=== PATIENT | female | born 1980 ===

== ENCOUNTER → 2018-06-25 | Outpatient (CLI) | payer OTHER ==
--- NOTE | 2018-06-26 09:04 | MM ---
Reason for exam: screening (asymptomatic). Baseline mammogram. History: Family history of breast cancer in maternal grandmother at age 63. Took hormonal contraceptives for 2 years. Physical Findings: Nurse did not find any significant physical abnormalities on exam. MG 3D Screening Mammo W/Cad Bilateral CC and MLO view(s) were taken. The breast tissue is heterogeneously dense. This may lower the sensitivity of mammography. Finding: There is a 10 mm circumscribed oval mass in the upper quadrant, middle posterior position of the left breast. These results were verbally communicated with the patient and result sheet given to the patient on 06/25/18. ASSESSMENT: Incomplete: need additional imaging evaluation, BI-RAD 0 RECOMMENDATION: Ultrasound of the left breast. [facility] will attempt to contact patient to return for ultrasound.
--- NOTE | 2018-06-26 09:05 | USB ---
Reason for exam: additional evaluation requested from abnormal screening. History: Family history of breast cancer in maternal grandmother at age 63. Took hormonal contraceptives for 2 years. Physical Findings: Breast exam preformed at baseline screening. US Breast Workup Limited LT Technologist: Swathi Harding RT (R)(M) Left limited breast ultrasound including focal area of concern, retroareolar and axilla demonstrates a 6 x 3 x 6mm oval, solid, hypoechoic lesion at 12 o'clock. These results were verbally communicated with the patient and result sheet given to the patient on 06/25/18. ASSESSMENT: Probably benign, BI-RAD 3 RECOMMENDATION: Follow-up diagnostic mammogram and ultrasound of the left breast in 6 months.
== END | disposition home or self-care (01) ==
LOC: RADMAMWWP 14:15
PROVIDERS: ATTEND Family Medicine
DX: Z12.31 Encounter for screening mammogram for malignant neoplasm of breast (principal); R92.8 Other abnormal and inconclusive findings on diagnostic imaging of breast; Z80.3 Family history of malignant neoplasm of breast
CPT/HCPCS: 77063; 77067

== ENCOUNTER → 2019-01-22 | Outpatient (CLI) | payer OTHER ==
--- NOTE | 2019-01-22 09:07 | MM ---
Reason for exam: follow-up at short interval from prior study. Last mammogram was performed 7 months ago. History: Family history of breast cancer in maternal grandmother at age 63. Took hormonal contraceptives for 2 years. Physical Findings: Nurse did not find any significant physical abnormalities on exam. MG 3D Diag Mammo W/Cad LT CC and MLO view(s) were taken of the left breast. Prior study comparison: June 25, 2018, bilateral MG 3d screening mammo w/cad. The breast tissue is heterogeneously dense. This may lower the sensitivity of mammography. There is chronic nodularity in the left breast. These results were verbally communicated with the patient and result sheet given to the patient on 01/22/19. ASSESSMENT: Benign, BI-RAD 2 RECOMMENDATION: Follow-up diagnostic mammogram of both breasts in 6 months. Back on schedule for June 2019.
--- NOTE | 2019-01-22 09:09 | USB ---
Reason for exam: follow-up at short interval from prior study. History: Family history of breast cancer in maternal grandmother at age 63. Took hormonal contraceptives for 2 years. US Breast LT Left complete breast ultrasound includes all four quadrants, the retroareolar region and axilla. Finding demonstrates a 0.4 x 0.3 x 0.3cm lesion too small to characterize at 12 o'clock and a 0.5 x 0.2 x 0.5cm mixed lesion at 9 o'clock. These results were verbally communicated with the patient and result sheet given to the patient on 01/22/19. ASSESSMENT: Probably benign, BI-RAD 3 RECOMMENDATION: Ultrasound of the left breast in 6 months.
== END | disposition home or self-care (01) ==
LOC: RADMAMWWP 07:41
PROVIDERS: ATTEND Family Medicine
DX: R92.8 Other abnormal and inconclusive findings on diagnostic imaging of breast (principal)
CPT/HCPCS: 77061; 77065

== ENCOUNTER → 2019-08-12 | Outpatient (CLI) | payer OTHER ==
--- NOTE | 2019-08-12 08:31 | MM ---
Reason for exam: follow-up at short interval from prior study. Last mammogram was performed 7 months ago. History: Family history of breast cancer in maternal grandmother at age 63. Took hormonal contraceptives for 2 years. Physical Findings: Nurse did not find any significant physical abnormalities on exam. MG 3D Diag Mammo W/Cad ALLISON Bilateral CC and MLO view(s) were taken. Prior study comparison: January 22, 2019, left breast MG 3d diag mammo w/cad LT. June 25, 2018, bilateral MG 3d screening mammo w/cad. The breast tissue is heterogeneously dense. This may lower the sensitivity of mammography. There are benign appearing round oval circumscribed stable left upper outer quadrant middle depth and central inner left breast masses. No suspicious abnormality. These results were verbally communicated with the patient and result sheet given to the patient on 08/12/19. ASSESSMENT: Benign, BI-RAD 2 RECOMMENDATION: Routine screening mammogram of both breasts in 1 year.
--- NOTE | 2019-08-12 08:33 | USB ---
Reason for exam: follow-up at short interval from prior study. History: Family history of breast cancer in maternal grandmother at age 63. Took hormonal contraceptives for 2 years. US Breast LT Left complete breast ultrasound includes all four quadrants, the retroareolar region and axilla. Finding demonstrates a 3 x 2 x 3mm oval, cystic lesion at 12 o'clock. These results were verbally communicated with the patient and result sheet given to the patient on 08/12/19. ASSESSMENT: Benign, BI-RAD 2 RECOMMENDATION: Routine screening mammogram of both breasts in 1 year.
== END | disposition home or self-care (01) ==
LOC: RADMAMWWP 07:04
PROVIDERS: ATTEND Family Medicine
DX: R92.8 Other abnormal and inconclusive findings on diagnostic imaging of breast (principal)
CPT/HCPCS: 77062; 77066

== ENCOUNTER → 2020-03-02 | Outpatient (CLI) | payer BC ==
[2020-03-02 20:05] LABS: Hemoglobin A1C 5.7 % (4.0-6.0)
== END | disposition home or self-care (01) ==
LOC: LABWHC1 10:15
PROVIDERS: ATTEND Internal Medicine Endocrinology, Diabetes & Metabolism
DX: O24.419 Gestational diabetes mellitus in pregnancy, unspecified control (principal); E03.8 Other specified hypothyroidism
CPT/HCPCS: 36415; 83036; 84443

== ENCOUNTER 2020-05-11 10:06 | Inpatient (IN) | payer BC, OTHER ==
[2020-05-09 14:33] VITALS: BMI 37.1
[2020-05-11] MEDS ORDERED: CITRIC ACID-SODIUM CITRATE 15 ML CUP PO ONE (10:24)
[2020-05-11] MEDS ORDERED: LACTATED RINGERS 1,000 ML IV ONE (10:24)
[2020-05-11 10:30] LABS: Glucose,Whole Blood 84 mg/dL (75-99)
[2020-05-11 11:05] LABS: Basophils % (A) 0 %; Eosinophils # (A) 0.1 k/uL (0-0.7); Eosinophils % (A) 1 %; HCT 34.3 % (34.0-46.0); HGB 10.8 gm/dL (11.4-16.0); Lymphocytes # (A) 2.2 k/uL (1.0-4.8); Lymphocytes % (A) 24 %; MCHC 31.6 g/dL (31.0-37.0); MCV 75.8 fL (80.0-100.0); Mean Platelet Volume 8.9; Microcytosis Slight; Monocytes # (A) 0.6 k/uL (0-1.0); Monocytes % (A) 6 %; Neutrophils # (A) 5.9 k/uL (1.3-7.7); Neutrophils % (A) 66 %; Platelet Count 229 k/uL (150-450); RBC 4.52 m/uL (3.80-5.40); RDW 15.3 % (11.5-15.5); WBC 8.9 k/uL (3.8-10.6)
[2020-05-11] MEDS ORDERED: KETOROLAC 15 MG/ML 1 ML VIAL ONE (12:09)
[2020-05-11] MEDS ORDERED: ePHEDrine SULFATE/0.9% NACL/PF 50 MG/5 ML SYRINGE IV ONE (12:09)
[2020-05-11] MEDS ORDERED: MORPHINE SULFATE (PF) 0.3 MG/0.3 ML SYR ONE (12:09)
[2020-05-11] MEDS ORDERED: ONDANSETRON 4 MG/2 ML VIAL ONE (12:09)
[2020-05-11] MEDS ORDERED: OXYTOCIN 10 UNIT/ML 1 ML VIAL ONE (12:09)
--- NOTE | 2020-05-11 12:11 | P.HPOB ---
History of Present Illness H&P Date: 05/11/20 This is a 39-year-old female 3 para 2001 EDC 05/28/2020 at 39 weeks gestation. Patient presents today with history of 2 prior sections, for repeat section and tubal ligation. Permanent tubal sterilization has been discussed in detail. She understands the risks and benefits. Fetus is been active throughout the . She denies vaginal bleeding or fluid leakage. Past medical history is significant for insulin resistance, PCO OS, hypothyroidism. Past surgical history section 2009, 2013, cholecystectomy 2009, appendectomy 2009. Current medications Synthroid 125 MCG's daily. ALLERGIES Levaquin to which reports an unknown reaction, and seasonal ALLERGIES. Family history significant for thyroid disease, lupus, breast cancer. Social history patient is , she is never been a smoker, she denies alcohol or drug use. history blood type is A+, rubella status immune. VDRL testing, hepatitis B surface antigen, HIV testing, urine culture, rubella status all negative. Thyroid function studies within normal limits. Group B strep cul tures positive. One-hour Glucola 170, 3 hour GTT within normal limits. On exam patient is 5 foot 2 inches, 207 pounds, blood pressure 111/72. Vital signs are otherwise stable and she is afebrile. Chest is clear in all wilson. Extremities reveal no edema. Abdomen is obviously gravid, is vertex to Canelo's maneuvers. heart rate is consistent with reactive NST. Impression: 39 week intrauterine , positive group B strep cultures, advanced maternal age, hypothyroidism, 2 previous sections requesting repeat , undesired fertility. Plan: Antibiotic prophylaxis. Close maternal and surveillance. Repeat section and tubal ligation. All risks benefits and alternatives discussed, all questions answered. Review of Systems Constitutional: Reports as per HPI Past Medical History Past Medical History: Thyroid Disorder Additional Past Medical History / Comment(s): varicose veins, gestational diabetes, diet controlled, pcos History of Any Multi-Drug Resistant Organisms: None Reported Past Surgical History: Appendectomy, Section, Cholecystectomy Past Anesthesia/Blood Transfusion Reactions: Postoperative Nausea & Vomiting (PONV) Additional Past Anesthesia/Blood Transfusion Reaction / Comment(s): states had multiple tries with first csection epidural, second csection had spinal and took multiple tries, then had leg spasms, also had low b/p Past Psychological History: No Psychological Hx Reported Smoking Status: Never smoker Past Alcohol Use History: None Reported Past Drug Use History: None Reported - Past Family History Mother Family Medical History: Thyroid Disorder Brother(s) Family Medical History: Hypertension Medications and Allergies Home Medications Medication Instructions Recorded Confirmed Type Aspirin [Children's Aspirin] 81 mg PO DAILY 03/02/20 05/11/20 History Levothyroxine Sodium [Synthroid] 137 mcg PO DAILY 03/02/20 05/11/20 History Pnv No.95/Ferrous Fum/Folic AC 1 each PO DAILY 03/02/20 05/11/20 History [ Multivitamin Tablet] Allergies Allergy/AdvReac Type Severity Reaction Status Date / Time levofloxacin [From Levaquin] AdvReac Nausea & Verified 05/11/20 10:22 Vomiting & Diarrhea Exam Vital Signs Temp Pulse Resp BP Pulse Ox 05/11/20 10:38 97 F L 81 16 111/72 98 Intake and Output 05/10/20 05/11/20 05/11/20 22:59 06:59 14:59 Other: Weight 93.894 kg See dictation please Results Result Diagrams: 05/11/20 10:30 Abnormal Lab Results - Last 24 Hours (Table) 05/11/20 Range/Units 10:30 Hgb 10.8 L (11.4-16.0) gm/dL MCV 75.8 L (80.0-100.0) fL MCH 24.0 L (25.0-35.0) pg Assessment and Plan Assessment: 39 week intrauterine , advanced maternal age, 2 previous sections, undesired fertility, hypothyroidism, positive group B strep cultures. Plan: For repeat low transverse section and tubal ligation. Antibiotic prophylaxis. All risks benefits and alternatives discussed in detail. Time with Patient: Less than 30
[2020-05-11] MEDS ORDERED: ACETAMINOPHEN TAB 325 MG TAB PO PRN (13:03)
[2020-05-11] MEDS ORDERED: METOCLOPRAMIDE 5 MG/ML 2 ML VIAL IVP PRN (13:03)
[2020-05-11] MEDS ORDERED: NALOXONE 0.4 MG/ML 1 ML VIAL IV PRN (13:03)
[2020-05-11] MEDS ORDERED: SIMETHICONE 80 MG CHEWABLE PO PRN (13:03)
[2020-05-11] MEDS ORDERED: ONDANSETRON 4 MG/2 ML VIAL IVP PRN (13:03)
[2020-05-11] MEDS ORDERED: diphenhydrAMINE 50 MG CAP PO PRN (13:03)
[2020-05-11] MEDS ORDERED: diphenhydrAMINE 25 MG CAP PO PRN (13:03)
[2020-05-11] MEDS ORDERED: diphenhydrAMINE 50 MG/ML 1 ML VIAL IVP PRN ×2 (13:03)
[2020-05-11] MEDS ORDERED: ZOLPIDEM 5 MG TAB PO PRN (13:03)
--- NOTE | 2020-05-11 13:03 | P.OP ---
Date of Procedure: 05/11/20 Preoperative Diagnosis: 39 week intrauterine , 2 previous sections declining , undesired fertility, advanced maternal age, hypothyroidism, positive group B strep cultures Postoperative Diagnosis: Same, liveborn male infant, normal-appearing tubes and ovaries bilaterally Procedure(s) Performed: Antibiotic prophylaxis, repeat low transverse section with tubal ligation utilizing Filshie clips Anesthesia: spinal Surgeon: Suni Avilez Machine Assistant #1: Lakeisha Patiño Estimated Blood Loss (ml): 500 IV fluids (ml): 1,300 Urine output (ml): 200 Pathology: none sent Condition: stable Disposition: PACU Operative Findings: Liveborn male , scores 9 and 9 at one and 5 minutes respectively, 8 lbs. 12 oz., 3960 g. Description of Procedure: Patient is brought to the operating suite. The appropriate consent is reviewed signed witnessed and dated. She's placed in the dorsal supine position after a spinal analgesia with Duramorph is administered. The abdomen is prepped and draped in usual sterile fashion. Grimaldo catheter placed to direct drainage. Antibiotics given. The appropriate timeout is performed to assure proper patient and procedural identification. Analgesia is checked and noted to be adequate. A repeat low transverse skin incision is made. This was taken down through the subcutaneous tissue which is approximately 6-8 cm deep. The fascia is isolated, scored, and extended bilaterally with curved Howell scissors. Peritoneum is next identified and incised, there is no bowel or bladder involvement. The bladder blade is placed over the dome of the bladder and the bladder flap is taken down carefully with Metzenbaum scissors and at all times Well from the operative field to avoid bladder and/or ureteral injury. A low transverse uterine incision is made, artificial amniorrhexis reveals clear fluid with vernix. The incision is extended bluntly in a transverse fashion. The 's head is delivered occiput anterior. There is no nuchal cord noted. The anterior shoulders delivered easily, and the patient officially delivered a liveborn male infant at 1229 hours. Umbilical cord is doubly clamped and ligated, he is handed to waiting nurses for evaluation where scores of 9 and 9 at one and 5 minutes respectively are given. The placenta is delivered manually, it is inspected and noted to be intact with trivascular cord at 1230 hours. Uterus is then massaged. Oxytocin is given. The uterus is swept clean with a sterile sponge to avoid any retained products of conception. The edges of the incision are grasped with Reyes clamps and the uterine incision is closed in a single full-thickness stitch of 0 Vicryl with excellent reapproximation and hemostasis. Patient's desire for tubal ligation is once again confirmed. The left fallopian tube is visualized in its entirety to the fimbriated end. A Filshie clip is placed in the isthmic portion of the tube with care to traverse the entire diameter of the tube into the mesal salpinx. Ovary appears normal. Same procedure is carried out contralaterally, again clipped in the isthmic portion completely traversing the diameter into the mesal salpinx. Right ovary appears normal to inspection as well. Bilateral gutters are inspected and cleaned. Uterine incision is once again visualized and is clean and dry. Peritoneum is allowed to close by secondary intention. Fascia is closed in a running stitch of 0 Vicryl with over ligation in the midline. Subcutaneous tissue is irrigated, noted to be clean and dry. 3-0 Vicryl is used in a running fashion to reapproximate the subcutaneous layer. 4-0 undyed Monocryl is used in a subcuticular manner for final skin closure. Steri-Strips and Mastisol are applied to the wound. Uterus is massaged for a small amount of vaginal bleeding. All sponge needle and enhancement counts are correct at the end of the procedure. Patient is brought back to the recovery room in excellent condition with a blood pressure 116/78, pulse 72. Patient and her are requesting circumcision for their son.
[2020-05-11] MEDS ORDERED: LACTATED RINGERS 1,000 ML IV SCH (13:15)
[2020-05-11] MEDS: LACTATED RINGERS 1,000 ML IV SCH ×3 (16:14→22:00)
[2020-05-11 18:46] LABS: Hemoglobin A1C 5.9 % (4.0-6.0)
[2020-05-11] MEDS: SENNOSIDES-DOCUSATE SODIUM 1 EACH TAB PO SCH (19:56)
[2020-05-11] MEDS: KETOROLAC 15 MG/ML 1 ML VIAL IVP PRN (19:57)
[2020-05-12] MEDS: LACTATED RINGERS 1,000 ML IV SCH (02:29)
[2020-05-12] MEDS: KETOROLAC 15 MG/ML 1 ML VIAL IVP PRN ×2 (04:04→10:00)
[2020-05-12 06:35] LABS: Basophils % (A) 0 %; Eosinophils # (A) 0.1 k/uL (0-0.7); Eosinophils % (A) 1 %; HCT 30.7 % (34.0-46.0); Hypochromasia Marked; Lymphocytes # (A) 1.9 k/uL (1.0-4.8); Lymphocytes % (A) 18 %; MCH 24.3 pg (25.0-35.0); MCHC 30.4 g/dL (31.0-37.0); MCV 79.9 fL (80.0-100.0); Mean Platelet Volume 8.4; Monocytes # (A) 0.7 k/uL (0-1.0); Monocytes % (A) 6 %; Neutrophils # (A) 7.8 k/uL (1.3-7.7); Neutrophils % (A) 73 %; Platelet Count 214 k/uL (150-450); RBC 3.84 m/uL (3.80-5.40); RDW 15.4 % (11.5-15.5); WBC 10.7 k/uL (3.8-10.6)
[2020-05-12 06:36] LABS: HGB 9.3 gm/dL (11.4-16.0)
--- NOTE | 2020-05-12 07:15 | P.PN ---
Progress Note - Text Date: 05/12/2020 Time: The patient is status post section Vital signs stable VAS: 0-10 Patient has no complaints of pain. The patient incurred some minimal itching yesterday, this itching is now subsiding. Pain meds to be managed by service.
[2020-05-12] MEDS: SENNOSIDES-DOCUSATE SODIUM 1 EACH TAB PO SCH ×2 (08:24→21:12)
--- NOTE | 2020-05-12 08:24 | P.PN ---
Subjective Progress Note Date: 05/12/20 Principal diagnosis: Postoperative day #1 Slept well. Pain well managed. Positive flatus. No complaints. Objective - Vital Signs Vital signs: Vital Signs Temp 97.8 F 05/12/20 04:00 Pulse 62 05/12/20 04:00 Resp 16 05/12/20 04:00 BP 77/55 05/12/20 04:00 Pulse Ox 97 05/12/20 04:00 Intake & Output 05/11/20 05/12/20 05/12/20 18:59 06:59 18:59 Intake Total 240 100 Output Total 750 3700 Balance -510 -3600 Weight 93.894 kg Intake: Oral 240 100 Output: Urine 3700 Uretheral (Grimaldo) 500 Emesis 250 Estimated Blood Loss 500 Other: # Voids 1 - Constitutional General appearance: Present: average body habitus, cooperative - EENT Eyes: Present: PERRLA ENT: Present: hearing grossly normal - Respiratory Respiratory: bilateral: CTA - Cardiovascular Rhythm: regular - Gastrointestinal General gastrointestinal: Present: normal bowel sounds - Genitourinary Genitourinary Comment(s): Incision clean and dry, intact, Steri-Strips applied. Fundus firm, midline, symmetric, 18 week size. - Integumentary Integumentary: Present: normal - Neurologic Neurologic: Present: CNII-XII intact - Musculoskeletal Musculoskeletal: Present: gait normal, strength equal bilaterally - Psychiatric Psychiatric: Present: A&O x's 3, appropriate affect, intact judgment & insight - Labs CBC & Chem 7: 05/12/20 06:06 Labs: Abnormal Lab Results - Last 24 Hours (Table) 05/11/20 05/12/20 Range/Units 10:30 06:06 WBC 10.7 H (3.8-10.6) k/uL Hgb 10.8 L 9.3 L D (11.4-16.0) gm/dL Hct 30.7 L (34.0-46.0) % MCV 75.8 L 79.9 L (80.0-100.0) fL MCH 24.0 L 24.3 L (25.0-35.0) pg MCHC 30.4 L (31.0-37.0) g/dL Neutrophils # 7.8 H (1.3-7.7) k/uL Assessment and Plan Assessment: Doing well day #1 Plan: Continue postoperative care. Advanced diet and activity. Circumcision this morning. Anticipate discharge home tomorrow. Time with Patient: Less than 30
[2020-05-12] MEDS: LEVOTHYROXINE 137 MCG TAB PO SCH (10:00)
[2020-05-12] MEDS: IBUPROFEN 600 MG TAB PO PRN ×2 (13:50→20:01)
[2020-05-12] MEDS: HYDROcodone/APAP 5-325MG 1 EACH TAB PO PRN (23:44)
[2020-05-13] MEDS: IBUPROFEN 600 MG TAB PO PRN (04:10)
[2020-05-13] MEDS: LEVOTHYROXINE 137 MCG TAB PO SCH (06:16)
[2020-05-13] MEDS: HYDROcodone/APAP 5-325MG 1 EACH TAB PO PRN (07:50)
--- NOTE | 2020-05-13 07:59 | P.DS ---
Providers Date of admission: 05/11/20 10:06 Expected date of discharge: 05/13/20 Attending physician: Suni Avilez Primary care physician: Stated None Hospital Course: This is a 39-year-old white female 3 para 2002 EDC 05/28/2020 at 39 weeks gestation who presented for repeat low transverse section and tubal ligation. She's had 2 previous sections in [place], and is declining the option for . is unremarkable, blood type A+, rupee strep cultures positive, please see dictated history and physical for details. Patient underwent a repeat low transverse section and tubal ligation. Estimate a blood loss recorded of 500 mL's. She gave to a liveborn male infant with scores of 9 and 9 at one and 5 minutes respectively. He weighed 3960 g or 8 lbs. 12 oz. Please see dictated delivery note for details. Circumcision has been performed and is doing well. The patient is also doing well, voiding ambulating and passing flatus without difficulty. Vital signs are stable and she is afebrile. Incision is clean and dry, intact, well approximated, Steri-Strips applied. Breasts are not engorged. Lochia rubra is minimal. Extremities are negative. Fundus is firm, midline, symmetric, 18 week size. Patient is judged to be in very good condition for discharge home. She will follow-up with me in the office in 2 weeks. I have reminded her no intercourse, tampons or douching. She will use [id number] Advil or Aleve, or Motrin as needed for pain. She will call with any fevers shakes or chills, foul smelling or copious lochia, with the passage of large blood clots, with any pain not alleviated by [id number] products or indeed with any concerns. [place] will follow-up with sales forecast analyst as per recommendations. Assessment: Doing well postoperative day #2 Patient Condition at Discharge: Good Plan - Discharge Summary Discharge Rx Participant: No New Discharge Prescriptions: No Action Levothyroxine Sodium [Synthroid] 137 mcg PO DAILY Pnv No.95/Ferrous Fum/Folic AC [ Multivitamin Tablet] 1 each PO DAILY Aspirin [Children's Aspirin] 81 mg PO DAILY Discharge Medication List Aspirin [Children's Aspirin] 81 mg PO DAILY 03/02/20 [History] Levothyroxine Sodium [Synthroid] 137 mcg PO DAILY 03/02/20 [History] Pnv No.95/Ferrous Fum/Folic AC [ Multivitamin Tablet] 1 each PO DAILY 03/02/20 [History] Follow up Appointment(s)/Referral(s): Suni Avilez MD [STAFF PHYSICIAN] - 2 Weeks Discharge Disposition: HOME SELF-CARE
[2020-05-13 09:29] VITALS: BP 114/73; PULSE 79; RESP 18; TEMP 98.2
== END 2020-05-13 12:00 | disposition home or self-care (01) | DRG 785 ==
LOC: 4FBP 10:06
PROVIDERS: ADMIT Obstetrics & Gynecology; ATTEND Obstetrics & Gynecology
PROC: 0UL70CZ Occlusion of Bilateral Fallopian Tubes with Extraluminal Device, Open Approach (ICD-10-PCS; principal; 2020-05-11 12:00)
PROC: 10D00Z1 Extraction of Products of Conception, Low, Open Approach (ICD-10-PCS; principal; 2020-05-11 12:00)
DX: O34.211 Maternal care for low transverse scar from previous cesarean delivery (principal); O99.284 Endocrine, nutritional and metabolic diseases complicating childbirth; E03.9 Hypothyroidism, unspecified; E28.2 Polycystic ovarian syndrome; O99.824 Streptococcus B carrier state complicating childbirth; O87.4 Varicose veins of lower extremity in the puerperium; L29.9 Pruritus, unspecified; O99.72 Diseases of the skin and subcutaneous tissue complicating childbirth; Z37.0 Single live birth; Z3A.39 39 weeks gestation of pregnancy; Z30.2 Encounter for sterilization; Z79.82 Long term (current) use of aspirin; Z79.890 Hormone replacement therapy; Z86.32 Personal history of gestational diabetes; Z88.1 Allergy status to other antibiotic agents; Z90.49 Acquired absence of other specified parts of digestive tract; Z80.3 Family history of malignant neoplasm of breast; Z82.49 Family history of ischemic heart disease and other diseases of the circulatory system; Z83.49 Family history of other endocrine, nutritional and metabolic diseases; Z84.89 Family history of other specified conditions
CPT/HCPCS: 83036; 85025; 86850; 86900; 86901

== ENCOUNTER → 2022-02-12 | Outpatient (CLI) | payer BC ==
--- NOTE | 2022-02-12 11:14 | USB ---
Reason for Exam: Clinical finding. Indicated Problems: Pain of both sides. Patient History: Menarche at age 11. First Full-Term at age 28. Patient used Hormonal Contraceptives for 2 years. Maternal grandmother had breast cancer, age 63. Risk Values: Anneliese 5 year model risk: 0.7%. NCI Lifetime model risk: 10.9%. Technique: Method: Whole Breast Handheld. Prior Study Comparison: 06/25/2018 Bilateral Screening Mammogram, [facility]. 01/22/2019 Left Diagnostic Mammogram, [facility]. 08/12/2019 Bilateral Diagnostic Mammogram, [facility]. Tissue Density: No abnormality visualized bilaterally to account for patient's pain. Findings: The whole breast of both breasts, the axilla of both breasts and the retroareolar of both breasts were scanned. Bilateral whole breast ultrasounds were performed including scanning of the subareolar region and axilla. There is no solid or cystic lesion on either side. Mild duct ectasia in keeping with patient's nursing status. No axillary lymphadenopathy. Dense tissues are present throughout. Overall Assessment: Benign, BI-RAD 2 Management: Screening Mammogram of both breasts. 1. The patient can have bilateral screening mammograms performed after completion of nursing. 2. Patient can continue monthly self breast exams. 3. This exam should not preclude additional follow-up of suspicious palpable abnormalities. Electronically signed and approved by: Ruslan Linton M.D. Radiologist
== END | disposition home or self-care (01) ==
LOC: RADUSWWP 10:18
PROVIDERS: ATTEND Family Medicine
DX: R92.8 Other abnormal and inconclusive findings on diagnostic imaging of breast (principal); Z80.3 Family history of malignant neoplasm of breast

== ENCOUNTER → 2022-11-30 | Outpatient (CLI) | payer BC ==
--- NOTE | 2022-11-30 16:23 | XR ---
EXAMINATION TYPE: XR chest 2V DATE OF EXAM: 11/30/2022 4:12 PM COMPARISON: None TECHNIQUE: XR chest 2V Frontal and lateral views of the chest. CLINICAL INDICATION:Female, 42 years old with history of R06.02 SOB; FINDINGS: Lungs/Pleura: There is no evidence of pleural effusion, focal consolidation, or pneumothorax. Pulmonary vascularity: Unremarkable. Heart/mediastinum: Cardiomediastinal silhouette is unremarkable. Musculoskeletal: No acute osseous pathology. Other: Surgical clips in the upper abdomen. IMPRESSION: No acute cardiopulmonary disease/process.
== END | disposition home or self-care (01) ==
LOC: RADXRMAIN 16:02
PROVIDERS: ATTEND Nurse Practitioner Family
DX: R06.02 Shortness of breath (principal)
CPT/HCPCS: 71046

== ENCOUNTER → 2023-02-08 | Outpatient (CLI) | payer BC ==
--- NOTE | 2023-02-11 10:12 | MM ---
Reason for Exam: Screening (asymptomatic). Last mammogram was performed 3 year(s) and 6 month(s) ago. Patient History: Menarche at age 11. First Full-Term at age 28. Patient used Hormonal Contraceptives for 2 years. Maternal grandmother had breast cancer, age 63. Risk Values: Anneliese 5 year model risk: 0.8%. NCI Lifetime model risk: 10.8%. Prior Study Comparison: 06/25/2018 Bilateral Screening Mammogram, [facility]. 01/22/2019 Left Diagnostic Mammogram, [facility]. 08/12/2019 Bilateral Diagnostic Mammogram, [facility]. Tissue Density: The breast tissue is heterogeneously dense. This may lower the sensitivity of mammography. Findings: Analyzed By CAD. There is no suspicious group of microcalcifications or new suspicious mass in either breast. Stable chronic nodularity within both breasts. Overall Assessment: Benign, BI-RAD 2 Management: Screening Mammogram of both breasts in 1 year. A clinical breast exam by your physician is recommended on an annual basis and results should be correlated with mammographic findings. Electronically signed and approved by: Alonso Denny D.O.
== END | disposition home or self-care (01) ==
LOC: RADMAMWWP 16:17
PROVIDERS: ATTEND Obstetrics & Gynecology
DX: Z12.31 Encounter for screening mammogram for malignant neoplasm of breast (principal); Z80.3 Family history of malignant neoplasm of breast
CPT/HCPCS: 77063; 77067

== ENCOUNTER → 2023-09-17 | Outpatient (CLI) | payer BC ==
--- NOTE | 2023-09-17 17:31 | P.SLEEP ---
History of Present Illness H&P Date: 09/17/23 This is a 42-year-old female patient was coming in for excessive fatigue and daytime sleepiness and concerns of obstructive sleep apnea. The patient has hypothyroidism and she has gained significant amount of weight over the years. She is currently weighing 229 pounds with a body mass index of 41.8. She has loud snoring and she has excessive fatigue and tiredness and sleepiness during the day. She goes to bed at around 11 PM, wakes up 6 AM in the morning. Her sleep is interrupted and disrupted as the patient also has a 3-year-old child that wakes up in the middle of the night. In the morning, she is tired and sleepy and she has issues with memory and concentration and attention span is also short. Her current [place] score is at 11. No sleep paralysis. No hallucinations. She can easily take a nap during the day if she is given the opportunity to do so. No nighttime chest pain or shortness of breath. No heartburn overnight. No grinding of the teeth. No sleepwalking or sleep talking. No anxiety or palpitations. No restlessness in the lower extremities. No previous evaluation for sleep apnea has been done on this patient. No substance abuse. No smoking. No alcoholism. No head trauma. No anxiety or depression. Review of Systems A full review of system was done and the positive findings were mentioned above in history of present illness Past Medical History Past Medical History: Thyroid Disorder Additional Past Medical History / Comment(s): varicose veins, gestational diabetes, diet controlled, pcos History of Any Multi-Drug Resistant Organisms: None Reported Past Surgical History: Appendectomy, Section, Cholecystectomy Past Anesthesia/Blood Transfusion Reactions: No Reported Reaction Additional Past Anesthesia/Blood Transfusion Reaction / Comment(s): states had multiple tries with first csection epidural, second csection had spinal and took multiple tries, then had leg spasms, also had low b/p Past Psychological History: No Psychological Hx Reported Smoking Status: Never smoker Past Alcohol Use History: None Reported Past Drug Use History: None Reported - Past Family History Mother Family Medical History: Thyroid Disorder Brother(s) Family Medical History: Hypertension Medications and Allergies Home Medications Medication Instructions Recorded Confirmed Type Aspirin [Children's Aspirin] 81 mg PO DAILY 03/02/20 05/11/20 History Levothyroxine Sodium [Synthroid] 137 mcg PO DAILY 03/02/20 05/11/20 History Pnv No.95/Ferrous Fum/Folic AC 1 each PO DAILY 03/02/20 05/11/20 History [ Multivitamin Tablet] Allergies Allergy/AdvReac Type Severity Reaction Status Date / Time levofloxacin [From Levaquin] AdvReac Nausea & Verified 05/11/20 10:22 Vomiting & Diarrhea Physical Exam BP is 96/62, pulse is 85, respirations 12, temperature 98.2 and weight is 229 and a body mass index is 41.8. [place] score is at 11. The patient appeared well nourished and normally developed. Vital signs as docu mented. Head exam is unremarkable. No scleral icterus or corneal arcus noted. Neck is without jugular venous distension, thyromegaly, or carotid bruits. The patient has significant crowding of the posterior oropharynx with a Mallampati class IV Carotid upstrokes are brisk bilaterally. Lungs are clear to auscultation and percussion. Cardiac exam reveals the PMI to be normally sized and situated. Rhythm is regular. First and second heart sounds normal. No murmurs, rubs or gallops. Abdominal exam reveals normal bowel sounds, no masses, no organomegaly and no aortic enlargement. Extremities are nonedematous and both femoral and pedal pulses are normal.Examination of the skin revealed no evidence of significant rashes, suspicious appearing nevi or other concerning lesions.Neurologically, the patient is awake and alert and the patient does not have any focal neurological deficit. Cranial nerves are essentially intact. Assessment and Plan Plan: Chronic hypersomnia with an [place] score of 11 and a high clinical suspicion for obstructive sleep apnea Loud snoring Obesity with a BMI of 41.8 Mallampati class IV History of gestational diabetes Polycystic ovary syndrome Hypothyroidism currently on thyroid hormone replacement Plan High clinical suspicion for obstructive sleep apnea. We will set up this patient for a screening home sleep study will make further recommendations based on those results. Encourage weight loss. We'll continue to follow. Sleep Note - Sleep Note Sleep Note: Temperature: Pulse Rate: Respiratory Rate: Blood Pressure: SpO2: Height: Weight: BMI: Neck Circumference:
== END ==
LOC: 3 N SLEEP 14:13
PROVIDERS: ATTEND Internal Medicine Critical Care Medicine
DX: G47.33 Obstructive sleep apnea (adult) (pediatric) (principal); G47.10 Hypersomnia, unspecified; E66.9 Obesity, unspecified; E03.9 Hypothyroidism, unspecified; R06.83 Snoring; M26.213 Malocclusion, Angle's class III; E28.2 Polycystic ovarian syndrome; Z86.32 Personal history of gestational diabetes; Z68.41 Body mass index [BMI] 40.0-44.9, adult; Z90.49 Acquired absence of other specified parts of digestive tract; Z79.82 Long term (current) use of aspirin; Z88.1 Allergy status to other antibiotic agents
CPT/HCPCS: 99211

== ENCOUNTER → 2023-09-27 | Outpatient (CLI) | payer BC ==
--- NOTE | 2023-10-09 20:16 | P.PCN ---
Date of Procedure: 09/27/23 Description of Procedure: Home sleep study testing report Date of service is 09/27/2023 Pertinent history This is a 43-year-old female patient who presented to the sleep center due to concerns of obstructive sleep apnea. The patient was seen in consultation on 09/17/2023. She has excessive fatigue and daytime sleepiness. She also has hypothyroidism and she has gained significant amount of weight over the years and her current body mass index is 41.8. She has loud snoring, excessive fatigue and tiredness during the day. Her [place] score is at 11. There was increased suspicion for obstructive sleep apnea. She also has Mallampati class IV. Based on all this, home sleep study was ordered Pertinent physical findings the patient has a body mass index of 41.9 and her current weight is at 125 pounds Technical description The [employer] apnea link system was used to complete this home sleep study. This is a type III home sleep study. The total recording duration was 8 hours and 53 minutes. The study started at 11:04 PM and the study ended at 7:57 AM. There was more than 8 hours of flow and oxygen saturation monitoring done on this patient and this was an adequate study Results Respiratory analysis showed a total of 124 obstructive hypopneas and 2 obstructive apneas. The resulting apnea-hypopnea index was 14.5 Oxygenation evaluation There was a total of 131 oxygen saturations. The patient's baseline pulse ox while awake was 98%, average pulse ox during sleep was 92%, lowest pulse ox was 77% and the patient spent approximately 73 minutes of the sleep time below pulse ox of 89% Cardiac summary Average heart rate was 72, minimum heart rate was 57 and maximum heart rate was 112 Assessment Symptomatic obstructive sleep apnea mild in severity with an AHI of 14.5 Mild nocturnal oxygen desaturation Excessive hypersomnia sleepiness with an [place] score of 11 Obesity with a BMI of 41.8 Hypothyroidism Polycystic ovary syndrome History of gestational diabetes Plan Will encourage weight loss. Optimize sleep hygiene measures. Maintain regular sleep schedule. The patient is excessively symptomatic from her sleep apnea. The patient will be asked to come into the sleep center to undergo a CPAP titration and CPAP therapy is to follow.
== END ==
LOC: 3 N SLEEP 13:12
PROVIDERS: ATTEND Internal Medicine Critical Care Medicine
DX: G47.33 Obstructive sleep apnea (adult) (pediatric) (principal); G47.10 Hypersomnia, unspecified; E66.9 Obesity, unspecified; E03.9 Hypothyroidism, unspecified; N83.209 Unspecified ovarian cyst, unspecified side; Z88.1 Allergy status to other antibiotic agents; Z79.82 Long term (current) use of aspirin; Z68.41 Body mass index [BMI] 40.0-44.9, adult

== ENCOUNTER 2023-11-28 19:56 | Outpatient (CLI) | payer BC ==
--- NOTE | 2023-12-03 22:51 | P.PCN ---
Date of Procedure: 11/28/23 Operative Findings: CPAP titration report Date of services 11/28/2023 History This is a 43-year-old female patient who is presenting to the sleep center to undergo CPAP titration. The patient underwent a home sleep study on 09/27/2023 the patient was found to have symptomatic obstructive sleep apnea that was essentially mild in severity with an AHI of 14.5. The patient also demonstrated mild nocturnal oxygen saturation. Her [place] score was at 11. She is obese with a BMI of 41.8. She has hypothyroidism, polycystic ovary disease. She is coming in for CPAP titration Technical description The patient was studied using a standard complex polysomnography protocol that included recording of the 2 EKG, Central, occipital and frontal EEG, right and left outer canthus EOG, submental EMG, right and left anterior tibialis EMG, respiratory airflow by thermocouple and or pressure/flow transducer, respiratory efforts by abdominal and thoracic PVDF belts, oxygen saturation by cable oximetry. Stepwise CPAP titration was done to eliminate obstructive respiratory events . Equipment used: [employer] Sleep architecture The total recording duration was 399.0 minutes. Total sleep time was 345.0 minutes. The overall sleep efficiency was 86.5%. The latency to sleep onset was 45 minutes. Latency to REM sleep was 53 minutes. The sleep architecture was characterized by 2% stage I, 46.8% stage II, 17.5% stage III and 33.6% REM sleep. The wake after sleep onset time was 8.5 minutes. The total arousal index was 2.4 Respiratory analysis CPAP titration was started at a pressure of 5 cm of water and the patient had a successful titration with elimination of the obstructive respiratory events with a CPAP pressure of 7 cm of water. This study was not associated supine body position. All sleep stages were encountered including REM sleep. There was also improvement in oxygenation without any desaturations in the target CPAP pressure of 7 cm of water. Sleep continuity summary There was a total of 14 arousals with an index of 2.4. Respiratory arousal index is 0 Periodic limb movement summary No significant periodic limb movements noted Cardiac summary Average heart rate was 90, minimum heart rate of 84 and a maximum heart rate of 96 Assessment Symptomatic obstructive sleep apnea with an AHI of 14.5. The patient underwent a successful CPAP titration. Plan Proceed with CPAP therapy pressure of 7 cm of water with a C-Flex of 3. The patient is going to be provided a Toribio-Paykel Get nasal mask. The patient will see me back in the office in 30 to 90 days to assess clinical response and compliancy.
== END 2023-11-29 05:40 | disposition home or self-care (01) ==
LOC: 3 N SLEEP 19:56
PROVIDERS: ATTEND Internal Medicine Critical Care Medicine
DX: G47.33 Obstructive sleep apnea (adult) (pediatric) (principal); Z88.1 Allergy status to other antibiotic agents
CPT/HCPCS: 95811